=== PATIENT | female | born 1980 | race Caucasian/White ===

== ENCOUNTER 2018-09-16 09:33 | Outpatient (CLI) | payer BC ==
--- NOTE | 2018-09-16 11:23 | ULT ---
URINARY BLADDER ULTRASOUND: CLINICAL HISTORY: Hematuria. FINDINGS: Urinary bladder volume, prevoid is 67 cm2. There is no postvoid residual. Bilateral urinary jets ar e demonstrated using Doppler assessment. IMPRESSION: Mild volume prevoid urinary bladder, and no evidence of significant postvoid residua. POS: [facility]
--- NOTE | 2018-09-19 07:31 | ULT ---
ABDOMINAL ULTRASOUND AND BLADDER ULTRASOUND: INDICATION: Hematuria. FINDINGS: The gallbladder is imaged. There is evidence of echogenic sludge layering dependently. There is no gallstone identified by ultrasound. Gallbladder wall is normal. The common duct is normal caliber m easured at 5 mm. The visualized abdominal aorta and IVC appear unremarkable. The proximal aorta is obscured. The liver is imaged and appears unremarkable. The spleen is unremarkable. Pancreas is partially imaged and appears unremarkable as visualized. Right kidney measures 9.4 cm in length and is unremarkable. Left kidney is 10.2 cm length. Tiny echogenic foci are present which could represent tiny calculi. No hydronephrosis. Urinary bladder is imaged. Prevoid volume recorded at 57 cc. Bilateral ureteral jets were demonstra naomi. The mildly distended bladder appears unremarkable. IMPRESSION: 1. Evidence of echogenic sludge in the gallbladder. 2. Kidneys appear unremarkable. Some questionable echogenic foci in the left kidney could potential ly represent tiny calculi, but this is not confirmed by ultrasound. 3. Urinary bladder is partially distended and appears unremarkable. POS: OFF
== END 2018-09-16 09:34 | disposition home or self-care (01) ==
LOC: ULT 09:33
PROVIDERS: ATTEND Nurse Practitioner Family
DX: R31.29 Other microscopic hematuria (principal); K82.8 Other specified diseases of gallbladder; N32.89 Other specified disorders of bladder
CPT/HCPCS: 76700; 76856